=== PATIENT | male | born 1975 | race Caucasian/White ===

== ENCOUNTER 2023-08-07 22:28 | Emergency (ER) | payer BC, SELFPAY ==
[2023-08-07 22:33] VITALS: BP 156/96; PULSE 102; RESP 18; TEMP 36.3; O2SAT 97
--- NOTE | 2023-08-07 22:46 | ED.GENADULT ---
HPI - General Adult General Chief complaint: Unspecified Complaint, Adult Stated complaint: concern for blood clot Time Seen by Provider: 08/07/23 22:29 Source: patient Mode of arrival: ambulatory Limitations: no limitations History of Present Illness HPI narrative: 47-year-old male coming in today concerned about a DVT of the left lower extremity. Patient states that on , 4 days ago, he slipped on his stairs at home and fell on his left leg, breaking the ankle. He suffered what it appears to be a trimalleolar fracture. Pain has been well-controlled with immobilization. He has surgery scheduled for the end of the week. However, he noticed he had some bruising going up the calf into his thigh and he is concerned he has a blood clot because he was told that postoperatively he is at increased risk of blood clots. He denies any pain of the knee, calf or thigh where the bruising is. He denies cough, shortness of breath, fevers or chills. He denies any nausea or vomiting. He denies any significant swelling of the area of concern that is bruised. Related Data Home Medications Medication Instructions Recorded Confirmed lisinopril 20 mg tablet 20 mg PO DAILY 08/07/23 08/07/23 Allergies Allergy/AdvReac Type Severity Reaction Status Date / Time No Known Drug Allergies Allergy Verified 08/07/23 22:37 Review of Systems Status of ROS: Reports: 10 or more systems reviewed and unremarkable except as noted in History and below Exam Narrative: Exam Narrative: Well-nourished well-developed patient in no acute distress. Alert and oriented. Answers questions appropriately. Mood and affect are appropriate. Thoughts are goal oriented and rational. No tangential or magical thinking noted. Patient speaks in full sentences without needing to catch their breath. Patient does not appear ill or toxic. HEENT: Normocephalic atraumatic. Pupils are equally round reactive to light. Extraocular muscles are intact. Conjunctivae are moist without any icterus noted. Moist mucous membranes. Cardiovascular: Heart is regular rate. Lungs: Clear to auscultation bilaterally. Extremities: Normal right lower extremity. Left lower extremity has a splint in place to just below the knee. Above the splint behind the knee there is ecchymosis that appears to be few days old ecchymosis extends up the medial thigh several inches. There is no tenderness to the area. There is no swelling or erythema. The knee joint itself appears to be normal without any joint swelling. Skin: Well perfused. Const: Vital Signs, click to edit/add: Vital Signs - 24 hr 08/07/23 22:33 Temperature 97.3 F L Pulse Rate [Left P ulse Oximeter] 102 H Respiratory Rate 18 Blood Pressure [Ri ght Upper Arm] 156/96 H Pulse Oximetry 97 Oxygen Delivery Me thod Room Air Course Vital Signs Vital signs: Initial Vital Signs Temperature 97.3 F L 08/07/23 22:33 Temperature Source Temporal Artery Scan 08/07/23 22:33 Pulse Rate 102 H 08/07/23 22:33 Pulse Rhythm Regular 08/07/23 22:33 Respiratory Rate 18 08/07/23 22:33 Blood Pressure 156/96 H 08/07/23 22:33 Blood Pressure Mean 116 H 08/07/23 22:33 Blood Pressure Position Sitting 08/07/23 22:33 Pulse Oximetry 97 08/07/23 22:33 Oxygen Delivery Method Room Air 08/07/23 22:33 Vital Signs Temperature 97.3 F L 08/07/23 22:33 Pulse Rate 102 H 08/07/23 22:33 Respiratory Rate 18 08/07/23 22:33 Blood Pressure 156/96 H 08/07/23 22:33 Pulse Oximetry 97 08/07/23 22:33 Oxygen Delivery Method Room Air 08/07/23 22:33 Temperature 97.3 F L 08/07/23 22:33 Pulse Rate 102 H 08/07/23 22:33 Respiratory Rate 18 08/07/23 22:33 Blood Pressure 156/96 H 08/07/23 22:33 Pulse Oximetry 97 08/07/23 22:33 Oxygen Delivery Method Room Air 08/07/23 22:33 Medical Decision Making MDM Narrative Medical decision making narrative: 47-year-old male with ecchymosis status post falling. Ecchymosis appears to be very much consistent with his injury. Given that he has no increased pain or swelling I do not see the need to rule out DVT at this time. He has no personal history of DVT. Patient reassured. Discharge Plan Discharge Clinical Impression: Ecchymosis Patient Disposition: Home, Self-Care Condition: Stable Additional Instructions: The bruising found today seems to be very consistent with your injury. If you feel like you are having increasing pain behind the knee or in the thigh, recommend returning to the ER at that time. Prescriptions: No Action lisinopril 20 mg tablet 20 mg PO DAILY Follow Up/Referrals: Provider,Not a Local [Primary Care Provider] - Stand Alone Forms: [employer] Info Instructions
--- NOTE | 2023-08-07 23:08 | PC.NURSE ---
DC instructions gone over with patient and he has no further questions, patient ambulatory on discharge pain controlled.
== END 2023-08-07 23:07 | disposition home or self-care (01) ==
PROVIDERS: Emergency Provider Family Medicine
DX: S80.12XA Contusion of left lower leg, initial encounter (principal); W10.9XXA Fall (on) (from) unspecified stairs and steps, initial encounter
CPT/HCPCS: 99283